=== PATIENT | female | born 1975 | race Caucasian/White ===

== ENCOUNTER 2016-10-11 21:58 | Inpatient (IN) | payer OTHER ==
[~2016-10-11] VITALS: Ht 167.6 cm; Wt 63.0 kg
--- NOTE | 2016-10-11 21:58 | NUR ---
Patient was BIBA and taken to bed 07 via gurney per EMS. [place] [employer] at bedside.
[2016-10-11 22:12] VITALS: BP 107/91
--- NOTE | 2016-10-11 22:12 | NUR ---
BIBA FOR HOLD, SUICIDAL IDEATION, SHE WAS FOUND INFRONT ON HER HOUSE SINGING [employer] TUNES, COMBATIVE, WITH WRIST PAIN, WANTS TO HURT HERSELF BY TAKING UNKNOWN PILLS,AMOUNT, FREQUENCY , TIME. ELIAZAR MARTINEZ WAS ON SCENE, AND AT BEDSIDE AT THIS TIME. PT WAS BROUGHT IN ON RESTRAINS, AT THE MOMENT PT CONTINUES COMBATIVE. ER MD ASKED FOR RESTRAINS ORDERS . NO S/S OF DISTRESS NOTED AT THE MOMENT.
--- NOTE | 2016-10-11 22:13 | NUR ---
RESTRAINS TAKEN OFF. PT SEEMS CALM AND VERBALIZES WILL REMAIN CALM. ER MD NOTIFIED.
--- NOTE | 2016-10-11 22:25 | NUR ---
REPORTED TO POISON CONTROL AND SPOKEN TO CAMILLE AND ADVISED,LAB WORKS, CBC, CMP, LFT, TYLENOL LEVEL, EKG, CARDIAC,MONITORING, SEIZURE, ASPIRATION PRECAUTIONS, BOWELSOUNDS.
--- NOTE | 2016-10-11 23:55 | NUR ---
PT PLACED BACK ON RESRAINS D/T PT THREATING TO HURT STAFF AND SELF. PT ON SALES DEPARTMENT SUPERVISOR, VSS.
--- NOTE | 2016-10-12 00:21 | NUR ---
ONE RESTRAIN TAKEN OFF BY HOUSE SUP PT STATES TO BEHAVE AND NOT HARM ANY ONE OR HERSEF. WE WILL TAKE REST OF RESTRAINS OFF IF PT CONT TO BEHAVE NON-VIOLENT.
[2016-10-12 00:35] LABS: HEMATOCRIT 41.8 % (36-48); HEMOGLOBIN 13.9 g/dL (12.0-16.0); MEAN CORPUSCULAR HEMOGLOBIN 31 pg (27-31); MEAN CORPUSCULAR HGB CONC 33 g/dL (33-37); MEAN CORPUSCULAR VOLUME 93 fL (80-94); PLATELET COUNT (AUTO) 284 K/uL (140-450); RED BLOOD CELL COUNT(AUTO) 4.48 MIL/uL (4.20-5.40); WHITE BLOOD COUNT (AUTO) 11.6 K/uL (4.8-10.8)
[2016-10-12 00:58] LABS: ALANINE AMINOTRANSFERASE 26 U/L (12-78); ALBUMIN 4.3 g/dL (3.4-5.0); ALKALINE PHOSPHATASE 46 U/L (46-116); ANION GAP 19.5 (8-16); ASPARTATE AMINOTRANSFERASE 37 U/L (15-37); CALCIUM 9.3 mg/dL (8.5-10.1); CARBON DIOXIDE 21.2 mmol/L (21-32); CHLORIDE 104 mmol/L (98-107); CREATININE 1.2 mg/dL (0.6-1.3); GFR ARICAN-AMERICAN 64 mL/min (>90); GFR NON ARICAN-AMERICAN 53 mL/min (>90); GLUCOSE 85 mg/dL (74-106); POTASSIUM 3.7 mmol/L (3.5-5.1); SODIUM SERUM 141 mmol/L (136-145); TOTAL BILIRUBIN 0.6 mg/dL (0.0-1.0); TOTAL PROTEIN, SERUM 8.4 g/dL (6.4-8.2); UREA NITROGEN, BLOOD 20 mg/dL (7-18)
--- NOTE | 2016-10-12 01:00 | NUR ---
ALL 4 RESTRAINS TAKEN OFF. PT CALM, LYING IN BED, STAYS SHE WILL REMAIN CALM IN RESTRAINS TAKING OFF. ER MD NOTIFIED.
--- NOTE | 2016-10-12 01:00 | NUR ---
ALL 4 RESTRAINS TAKEN OFF. PT CALM, LYING IN BED, STAYS TO REMAIN CALM IN RESTRAINS TAKING OFF. ER MD NOTIFIED.
[2016-10-12 01:05] LABS: BAND % (MANUAL) 2 % (0-8); NEUTROPHILS % (MANUAL) 77 (43-65)
[2016-10-12 01:06] LABS: LYMPHOCYTES % (MANUAL) 18 % (20-46); MONOCYTES % (MANUAL) 3 % (5-12)
[2016-10-12 01:08] LABS: SALICYLATE < 2.8 mg/dL (2.8-20.0)
[2016-10-12 01:09] LABS: ACETAMINOPHEN < 0.5 ug/ml (10-30); ALCOHOL, BLOOD < 3 mg/dL (<3)
--- NOTE | 2016-10-12 01:42 | NUR ---
Dr. Murillo evaluating patient at bedside.
--- NOTE | 2016-10-12 02:22 | NUR ---
PT RESTING IN BED, VSS, CALM, CONNECTED TO OIL ANALYST.
[2016-10-12 02:51] LABS: APPEARANCE,URINE SL CLOUDY (CLEAR); BILIRUBIN,URINE 1+ (NEGATIVE); BLOOD, URINE 1+ (NEGATIVE); COLOR,URINE YELLOW (YELLOW); LEUKOCYTE ESTERASE ,URINE NEGATIVE (NEGATIVE); NITRITE, URINE NEGATIVE (NEGATIVE); PH,URINE 5.5 (5.0-9.0); PROTEIN,URINE 1+ (NEGATIVE); UGLUCOSE NEGATIVE (NEGATIVE); UROBILINOGEN,URINE 0.2 EU/dL (0.2 - 1)
--- NOTE | 2016-10-12 02:53 | NUR ---
PT CRYING C/O PRESSURE HEADACHE, VSS. ER MD NOTIFIED.
--- NOTE | 2016-10-12 02:55 | NUR ---
PER ER MD TO ADMINISTER NS 0.9% WIDE OPEN 999/HR. FLUIDS STARTED AT THIS MOMENT.
[2016-10-12 03:00] LABS: AMPHETAMINE, URINE POS. ng/ml (NEG <=1000); BARBITURATE, URINE NEG. ng/ml (NEG <=200); BENZODIAZEPINE, URINE NEG. ng/mL (NEG <=200); CANNABINOID, URINE NEG. ng/mL (NEG <=50); COCAINE, URINE NEG. ng/mL (NEG <=300); OPIATE, URINE NEG. ng/mL (NEG <=2000); PHENCYCLIDINE SCREEN,URINE NEG. ng/mL (NEG <=25)
[2016-10-12] MEDS ORDERED: HYDROmorphone 1 MG/ML AMP IVP ONE (03:30)
[2016-10-12] MEDS ORDERED: NACL 0.9% 1,000 ML IV ONE (03:30)
[2016-10-12] MEDS ORDERED: ONDANSETRON 4 MG/2 ML VIAL IVP ONE (03:30)
[2016-10-12 03:37] LABS: BACTERIA,URINE 4+ /HPF (None Seen); ICTOTEST NEGATIVE (NEGATIVE); MUCUS,URINE 4+ /LPF (None Seen); WBC,URINE 0-5 (RARE) /HPF (0-5)
--- NOTE | 2016-10-12 03:48 | NUR ---
PT REFUSED DILAUDED AND ZOFRAN. PT STATES DOESNT LIKE NARCOTICS. ROLO JULES NOTIFIED.
--- NOTE | 2016-10-12 04:29 | NUR ---
PT SLEEPING NO S/S OF DSITRESS NOTED AT THE MOMENT. VSS.
--- NOTE | 2016-10-12 05:57 | NUR ---
PT SLEEPING, NO S/S OF DISTRESS NOTED. VSS.
[2016-10-12] MEDS ORDERED: LEVOFLOXACIN 500 MG/D5W PREMIX 100 ML IV ONE (06:05)
[2016-10-12] MEDS ORDERED: MORPHINE SULFATE 2 MG/ML SYR IVP PRN (07:05)
[2016-10-12] MEDS ORDERED: ONDANSETRON 4 MG/2 ML VIAL IVP PRN (07:05)
[2016-10-12] MEDS ORDERED: ACETAMINOPHEN 325 MG TAB PO PRN (07:05)
--- NOTE | 2016-10-12 07:12 | NUR ---
Pt report given to MONIKA BETHEA. Transfer of care at this time.PT STABLE, NO S/S OF DITRESS NOTED. ON ENVIRONMENTAL ENGINEER SCIENTIST.
--- NOTE | 2016-10-12 07:18 | NUR ---
Patient will be admitted to care of DR HERNÁNDEZ. Admited to ICU. Will go to room ICU6. Belongings list completed. Report to MONIKA CRUZ.
--- NOTE | 2016-10-12 07:34 | NUR ---
NEOSPORIN AND DRY DRESSING APPLIED TO LEFT WRIST FOR SUPERFICIAL CUT AT THIS TIME; PT TOLERATED PROCEDURE WELL; VSS; RR EVEN/UNLABORED; WILL CONTINUE TO MONITOR.
[2016-10-12] MEDS ORDERED: NEOMYCIN/POLYMYXIN/BACITRACIN 0.9 GM/1 PKT TP ONE (07:38)
--- NOTE | 2016-10-12 07:46 | NUR ---
Patient will be admitted to care of DR HERNÁNDEZ. Admited to ICU. Will go to room ICU 6. Belongings list completed. Report to MONIKA CRUZ. PT BEING TRANFERRED TO ICU VIA YASHIRA ACCOMPANIED BY MONIKA ALONZO AND EMT ANSELMO AT THIS TIME.
--- NOTE | 2016-10-12 07:50 | NUR ---
RECEIVED PATIENT FROM ED NURSE IN STABLE CONDITION. MADE COMFORTABLE IN BED.
--- NOTE | 2016-10-12 08:30 | NUR ---
PATIENT REFUSED MRSA SWABBED AT THIS TIME. RISK AND BENEFITS DISCUSSED.
[2016-10-12] MEDS ORDERED: ENOXAPARIN 40 MG/0.4 ML SYR SUBQ SCH (09:00)
--- NOTE | 2016-10-12 09:38 | NUR ---
DR. BECERRIL IN AND EXAMINED PATIENT. WILL FOLLOW UP WITH NEW ORDERS.
--- NOTE | 2016-10-12 09:47 | NUR ---
SEEN THE PATIENT. PER : PATIENT IS MEDICALLY CLEAR FOR PSYCHOLOGY CONSULT AND PSYCH PLACEMENT IF NEEDED.
--- NOTE | 2016-10-12 11:25 | NUR ---
FAXED THE FACE SHEET TO 'S OFFICE # [phone] AND LEFT THE MESSAGE FOR ABOUT CONSULTATION. AWAITING FOR TO CALL BACK.
--- NOTE | 2016-10-12 11:43 | NUR ---
SS NOTE: SENT PSYCH PLACEMENT INQUIRIES TO: [facility]
[2016-10-12 12:00] VITALS: BP 113/72
--- NOTE | 2016-10-12 12:45 | NUR ---
PATIENT ASKED TO GO TO THE RESTROOM, EXPLAINED TO HER THAT WE DON'T HAVE RESTROOM IN HERE BUT I CAN PROVIDE HER WITH A BEDSIDE COMMODE. PATIENT GOT UPSET AND STARTED REMOVING TELE MONITOR, PULSE OX AND BP CUFF. SHE STATED THAT IT IS UNSANITARY TO USE THE BEDSIDE COMMODE AND ASKED FOR TOILET SEAT LINER AND WIPES. PROVIDED WITH TOILET SEAT LINER AND WIPES. PATIENT STARTED TO CHANGE TO HER STREET CLOTHES AND STATING SHE WANT TO DISCHARGE HER SELF. SECURITY HAD BEEN CALLED AND SPOKE TO PATIENT.
--- NOTE | 2016-10-12 12:47 | NUR ---
patient is complaining of 10./10 pain on the left wrist, dr. medina paged. waiting for call back.
[2016-10-12] MEDS ORDERED: PROBIOTIC SCREEN 1 EA MISC MC PRN (13:50)
[2016-10-12] MEDS ORDERED: HYDROcodone/APAP 5/325 MG 1 TAB TAB PO PRN ×2 (14:35)
[2016-10-12] MEDS ORDERED: VENLAFAXINE 37.5 MG TAB PO SCH (14:40)
--- NOTE | 2016-10-12 16:00 | NUR ---
DR. NUNEZ IN AND EXAMINED PATIENT.
--- NOTE | 2016-10-12 16:20 | NUR ---
IN ADDENDUM FOR THE PREVIOUS DOCUMENTATION: DOES NOT MEET [address] NUNEZ[address]
--- NOTE | 2016-10-12 16:20 | NUR ---
PATIENT DOES NOT MEET 5[address] AND MAYBE D/C'D HOME IF MEDICALLY CLEARED. PATIENT SIGNED AMA AT THIS TIME. DR. BECERRIL MADE AWARE. NURSE DRUG SAFETY DATA MANAGEMENT SPECIALIST MADE AWARE.
[2016-10-13] MEDS ORDERED: VENLAFAXINE 37.5 MG TAB PO SCH (09:00)
== END 2016-10-12 16:20 | disposition left against medical advice (07) | DRG 750 ==
LOC: EDBD 21:58 → MED 21:58 → MIC 10-12 07:58
PROVIDERS: ADMIT Hospitalist; ATTEND Hospitalist
DX: F20.9 Schizophrenia, unspecified (principal); R45.851 Suicidal ideations; F15.20 Other stimulant dependence, uncomplicated; N39.0 Urinary tract infection, site not specified; F41.9 Anxiety disorder, unspecified; E86.0 Dehydration; Z53.21 Procedure and treatment not carried out due to patient leaving prior to being seen by health care provider; F19.10 Other psychoactive substance abuse, uncomplicated; F43.10 Post-traumatic stress disorder, unspecified; F32.9 Major depressive disorder, single episode, unspecified; Z72.89 Other problems related to lifestyle; Z87.81 Personal history of (healed) traumatic fracture; Z91.14 Patient's other noncompliance with medication regimen
CPT/HCPCS: 36415; 80053; 80305; 81001; 85025; 93005; 96361; 96365; 99285; G0480; G0482; J0696; J1650; J1956; J7030; J7060

== ENCOUNTER 2017-11-27 11:54 | Emergency (ER) | payer OTHER ==
[~2017-11-27] VITALS: Ht 167.6 cm; Wt 69.4 kg
[2017-11-27 11:58] VITALS: BP 102/67
--- NOTE | 2017-11-27 12:05 | NUR ---
PT AMBULATES TO BED 7
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
--- NOTE | 2017-11-27 12:08 | NUR ---
DR YOUSSEF EVALUATING AT BEDSIDE
[2017-11-27] MEDS ORDERED: HYDROcodone/APAP 5/325 MG 1 TAB TAB PO ONE (12:15)
[2017-11-27] MEDS ORDERED: KETOROLAC 60 MG/2 ML VIAL IM ONE (12:15)
--- NOTE | 2017-11-27 12:28 | NUR ---
XRAY AT BEDSIDE
[2017-11-27 13:37] VITALS: BP 128/69
== END 2017-11-27 13:37 | disposition home or self-care (01) ==
LOC: MED 11:54
DX: S60.221A Contusion of right hand, initial encounter (principal); Z88.5 Allergy status to narcotic agent; V89.9XXA Person injured in unspecified vehicle accident, initial encounter; Y93.I9 Activity, other involving external motion; Y92.488 Other paved roadways as the place of occurrence of the external cause; Y99.8 Other external cause status
CPT/HCPCS: 73130; 96372; 99284; J1885; Q0092

== ENCOUNTER 2018-01-17 10:05 | Emergency (ER) | payer OTHER ==
[~2018-01-17] VITALS: Ht 165.1 cm; Wt 71.3 kg
[2018-01-17 10:11] VITALS: BP 129/90
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
--- NOTE | 2018-01-17 10:25 | NUR ---
Patient being evaluated by physician at bedside.
[2018-01-17 10:41] VITALS: BP 125/85
== END 2018-01-17 10:41 | disposition home or self-care (01) ==
LOC: MED 10:05
DX: G89.29 Other chronic pain (principal); M25.532 Pain in left wrist; Z88.5 Allergy status to narcotic agent
CPT/HCPCS: 99283

== ENCOUNTER 2018-01-23 11:40 | Emergency (ER) | payer OTHER ==
[~2018-01-23] VITALS: Ht 165.1 cm; Wt 68.9 kg
[2018-01-23 11:49] VITALS: BP 121/86
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
--- NOTE | 2018-01-23 13:15 | NUR ---
PT. RESTING COMFORTABLY IN BED , RR EVEN AND UNLABORED. WILL CONTINUE TO MONITOR.
[2018-01-23] MEDS ORDERED: NACL 0.9% 1,000 ML IV SCH (13:47)
[2018-01-23] MEDS ORDERED: KETOROLAC 30 MG/ML VIAL IVP ONE (13:50)
[2018-01-23] MEDS ORDERED: METOCLOPRAMIDE 10 MG/2 ML INJ VIAL IVP ONE (13:50)
--- NOTE | 2018-01-23 14:46 | NUR ---
VSS. RR EVEN AND UNLABORED, PROVIDED WITH BLANKET, DIMED THE LIGHTS FOR COMFORT. BED IN LOWEST POSITION. WILL CONTINUE TO MONITOR.
[2018-01-23] MEDS ORDERED: traMADol 50 MG TAB PO ONE (15:05)
[2018-01-23 15:35] VITALS: BP 120/74
--- NOTE | 2018-01-23 15:35 | NUR ---
Patient discharged with v/s stable. Written and verbal after care instructions given and explained. Patient alert, oriented and verbalized understanding of instructions. Ambulatory with steady gait. All questions addressed prior to discharge. ID band removed. Patient advised to follow up with PMD. Rx of TRAMADOL, IBUPROFEN 800MG,REGLAN 10 MG , BENADRYL TOPICAL CREAM given. Patient educated on indication of medication including possible reaction and side effects. Opportunity to ask questions provided and answered.
== END 2018-01-23 15:35 | disposition home or self-care (01) ==
LOC: MED 11:40
DX: G43.909 Migraine, unspecified, not intractable, without status migrainosus (principal); R21 Rash and other nonspecific skin eruption; F41.9 Anxiety disorder, unspecified; F17.200 Nicotine dependence, unspecified, uncomplicated; Z88.5 Allergy status to narcotic agent
CPT/HCPCS: 36415; 81025; 84703; 96374; 96375; 99284; J1885; J2765; J7030

== ENCOUNTER 2018-03-03 14:28 | Emergency (ER) | payer OTHER ==
[~2018-03-03] VITALS: Ht 165.1 cm; Wt 69.9 kg
[2018-03-03 14:50] VITALS: BP 104/74
--- NOTE | 2018-03-03 16:30 | NUR ---
no answer in er lobby
--- NOTE | 2018-03-03 16:45 | NUR ---
PATIENT LEFT WITHOUT BEING SEEN BY DR. PUGH. NO FURTHER CARE PROVIDED FOR PATIENT.
== END 2018-03-03 16:30 | disposition left against medical advice (07) ==
LOC: MED 14:28
DX: R42 Dizziness and giddiness (principal); Z53.21 Procedure and treatment not carried out due to patient leaving prior to being seen by health care provider

== ENCOUNTER 2018-06-07 15:47 | Emergency (ER) | payer OTHER ==
[~2018-06-07] VITALS: Ht 167.6 cm; Wt 65.3 kg
[2018-06-07 15:51] VITALS: BP 120/78
--- NOTE | 2018-06-07 15:58 | NUR ---
PT AMBULATED TO ER BED 07
--- NOTE | 2018-06-07 16:06 | NUR ---
BIB SELF WITH C/O FALL X YESTERDAY AND HIT HER HEAD. PT ALSO STATES SHE HURT HER LEFT ARM, AND BACK, -N/V/D, - BLURRY VISION. SKIN IS PINK/WARM/DRY; AAOX4 WITH EVEN AND STEADY GAIT; LUNGS CLEAR BL; HR EVEN AND REGULAR; PT DENIES ANY FEVER, CP, SOB, OR COUGH AT THIS TIME; VSS; PATIENT POSITIONED FOR COMFORT; HOB ELEVATED; BEDRAILS UP X2; BED DOWN. ER MD MADE AWARE OF PT STATUS.
--- NOTE | 2018-06-07 16:17 | NUR ---
Patient being evaluated by physician at bedside.
[2018-06-07 18:30] VITALS: BP 128/82
--- NOTE | 2018-06-07 18:30 | NUR ---
Patient discharged with v/s stable. Written and verbal after care instructions given and explained. Patient alert, oriented and verbalized understanding of instructions. Ambulatory with steady gait. All questions addressed prior to discharge. ID band removed. Patient advised to follow up with PMD. Rx of NORCO 5MG-325MG AND IBUPROFEN 600MG given. Patient educated on indication of medication including possible reaction and side effects. Opportunity to ask questions provided and answered.
== END 2018-06-07 18:30 | disposition home or self-care (01) ==
LOC: MED 15:47
DX: S09.90XA Unspecified injury of head, initial encounter (principal); F41.9 Anxiety disorder, unspecified; F20.9 Schizophrenia, unspecified; W19.XXXA Unspecified fall, initial encounter; Y93.89 Activity, other specified; Y92.89 Other specified places as the place of occurrence of the external cause; Y99.8 Other external cause status
CPT/HCPCS: 70450; 72072; 73090; 81002; 81025; 99284

== ENCOUNTER 2018-06-07 19:13 | Emergency (ER) | payer OTHER ==
[~2018-06-07] VITALS: Ht 167.6 cm; Wt 65.3 kg
[2018-06-07 19:13] VITALS: BP 118/84
--- NOTE | 2018-06-07 19:13 | NUR ---
PT [facility] BLS. TAKEN TO BED 2
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
[2018-06-07] MEDS ORDERED: IBUPROFEN 600 MG TAB PO ONE (20:25)
[2018-06-07] MEDS ORDERED: KETOROLAC 60 MG/2 ML VIAL IM ONE (22:50)
--- NOTE | 2018-06-07 23:00 | NUR ---
PT PROVIDED WITH CRUTCHES AND EDUCATION, PT VERBALIZED UNDERSTANDING.
[2018-06-07 23:45] VITALS: BP 118/84
== END 2018-06-07 23:25 | disposition home or self-care (01) ==
LOC: MED 19:13
DX: S39.012A Strain of muscle, fascia and tendon of lower back, initial encounter (principal); S80.11XA Contusion of right lower leg, initial encounter; F41.9 Anxiety disorder, unspecified; V03.99XA Pedestrian with other conveyance injured in collision with car, pick-up truck or van, unspecified whether traffic or nontraffic accident, initial encounter; Y93.89 Activity, other specified; Y92.89 Other specified places as the place of occurrence of the external cause; Y99.8 Other external cause status
CPT/HCPCS: 72131; 72192; 73590; 81002; 81025; 96372; 99284; J1885; Q0092

== ENCOUNTER 2018-07-03 12:35 | Emergency (ER) | payer OTHER ==
[~2018-07-03] VITALS: Ht 165.1 cm; Wt 68.0 kg
[2018-07-03 12:39] VITALS: BP 104/80
--- NOTE | 2018-07-03 12:46 | NUR ---
PT AMBULATED TO ER BED 01
--- NOTE | 2018-07-03 13:02 | NUR ---
PATIENT PRESENTS TO ED FOR MEDICINE REFILL. RAN OUT OF PAIN MEDS. PT STATES SHE CAN NOT AFFORD TO REFILL HER MEDS NORCO AND IBUPROFEN. C/O PAIN 12/02. DENIES N/V/D; SKIN IS PINK/WARM/DRY. AAOX4, USES CANE TO AMBULATE. PT DENIES ANY FEVER, CP, SOB, OR COUGH AT THIS TIME. AT THIS TIME. VSS. PATIENT POSITIONED FOR COMFORT; HOB ELEVATED; BEDRAILS UP X2; BED DOWN. ER MD MADE AWARE OF PT STATUS.
[2018-07-03] MEDS ORDERED: HYDROcodone/APAP 5/325 MG 1 TAB TAB PO ONE (13:20)
--- NOTE | 2018-07-03 13:57 | NUR ---
Patient discharged with v/s stable. Written and verbal after care instructions given and explained. Patient alert, oriented and verbalized understanding of instructions. Ambulatory with steady gait. All questions addressed prior to discharge. ID band removed. Patient advised to follow up with PMD. Rx of NORCO, NAPROSYN AND GABAPENTINE given. Patient educated on indication of medication including possible reaction and side effects. Opportunity to ask questions provided and answered.
[2018-07-03 14:20] VITALS: BP 104/80
== END 2018-07-03 13:57 | disposition home or self-care (01) ==
LOC: MED 12:35
DX: S59.912A Unspecified injury of left forearm, initial encounter (principal); S99.911A Unspecified injury of right ankle, initial encounter; M54.9 Dorsalgia, unspecified; R07.81 Pleurodynia; M54.2 Cervicalgia; Z98.890 Other specified postprocedural states; V89.2XXA Person injured in unspecified motor-vehicle accident, traffic, initial encounter; Y93.89 Activity, other specified; Y92.89 Other specified places as the place of occurrence of the external cause; Y99.8 Other external cause status
CPT/HCPCS: 99283

== ENCOUNTER 2018-08-31 15:10 | Emergency (ER) | payer OTHER ==
[~2018-08-31] VITALS: Ht 167.6 cm; Wt 68.0 kg
[2018-08-31 15:15] VITALS: BP 136/79
--- NOTE | 2018-08-31 15:15 | NUR ---
PATIENT AMBULATED TO ER CHAIR C.
[2018-08-31 15:20] VITALS: BP 139/82
--- NOTE | 2018-08-31 15:20 | NUR ---
PATIENT IS A 43 Y/O FEMALE WHO PRESENTS TO THE ED C/O L EAR PAIN. PT STATES THAT EAR HAS BEEN BOTHERING HER X2 WEEK. PT REPORTS 8/10 ACHING L EAR PAIN THAT RADIATES DOWN THE L NECK. PT DENIES CP, SOB, N/V/D. PT AWAKE AND ALERT, RR EVEN/UNLABORED. PT REPOSITIONED FOR COMFORT, BED IN LOWEST POSITION. ER PROVIDER NOTIFIED. WILL CONTINUE TO MONITOR.
[2018-08-31] MEDS ORDERED: IBUPROFEN 400 MG TAB PO ONE (15:40)
--- NOTE | 2018-08-31 16:14 | NUR ---
Patient discharged with v/s stable. Written and verbal after care instructions given and explained. Patient alert, oriented and verbalized understanding of instructions. Ambulatory with steady gait. All questions addressed prior to discharge. ID band removed. Patient advised to follow up with PMD. Rx of CORTICOSPORIN OTIC SUSPENSION given. Patient educated on indication of medication including possible reaction and side effects. Opportunity to ask questions provided and answered.
== END 2018-08-31 16:14 | disposition home or self-care (01) ==
LOC: MED 15:10
DX: H60.91 Unspecified otitis externa, right ear (principal); F41.9 Anxiety disorder, unspecified; Z87.891 Personal history of nicotine dependence
CPT/HCPCS: 93005; 99283

== ENCOUNTER 2018-10-09 22:27 | Emergency (ER) | payer OTHER ==
[~2018-10-09] VITALS: Ht 167.6 cm; Wt 68.0 kg
[2018-10-09 22:28] VITALS: BP 108/68
--- NOTE | 2018-10-09 22:30 | NUR ---
TO LOBBY A/W BED VIA W/C
--- NOTE | 2018-10-09 23:21 | NUR ---
PT BROUGHT TO JOSE R 2 VIA WHEELCHAIR
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
[2018-10-09] MEDS ORDERED: CEPHALEXIN 500 MG CAP PO ONE (23:40)
[2018-10-09] MEDS ORDERED: IBUPROFEN 600 MG TAB PO ONE (23:40)
[2018-10-09] MEDS ORDERED: SULFAMETH/TRIMETH DS 800/160MG 1 TAB PO ONE (23:40)
[2018-10-10 00:14] VITALS: BP 111/74
--- NOTE | 2018-10-10 00:14 | NUR ---
Patient discharged with v/s stable. Written and verbal after care instructions given and explained. Patient alert, oriented and verbalized understanding of instructions. Wheelchair assisted to car, ambulatory to car. All questions addressed prior to discharge. ID band removed. Patient advised to follow up with PMD. Rx of bactrim, keflex, ibuprofen given. Patient educated on indication of medication including possible reaction and side effects. Opportunity to ask questions provided and answered.
== END 2018-10-10 00:14 | disposition home or self-care (01) ==
LOC: MED 22:27
DX: S90.562A Insect bite (nonvenomous), left ankle, initial encounter (principal); L03.116 Cellulitis of left lower limb; I95.9 Hypotension, unspecified; F17.210 Nicotine dependence, cigarettes, uncomplicated; Z88.5 Allergy status to narcotic agent; W57.XXXA Bitten or stung by nonvenomous insect and other nonvenomous arthropods, initial encounter; Y93.89 Activity, other specified; Y92.89 Other specified places as the place of occurrence of the external cause; Y99.8 Other external cause status
CPT/HCPCS: 99284